=== PATIENT | male | born 1985 | race Hispanic/Latino ===

== ENCOUNTER 2017-11-24 02:47 | Emergency (ER) | payer OTHER ==
[2017-11-24 03:01] VITALS: RESP 18; TEMP 98; O2SAT 98
--- NOTE | 2017-11-24 03:57 | ED PDOC ---
HPI: Head Injury Time Seen by Provider: 11/24/17 02:51 Chief Complaint (Nursing): Alcohol Ingestion Chief Complaint (Provider): Alcohol Ingestion History Per: Patient, EMS History/Exam Limitations: intoxication Injury Occurred (Timing): Just Before Arrival Additional Complaint(s): Patient presents via EMS for evaluation of alcohol intoxication prior to arrival. Patient admits to drinking alcohol tonight and states he was walking home when an ambulance brought him to ED. He states he is unsure why he is here. As per EMS, patient had fallen and hit his head. Patient denies any (-) trauma, (-) injuries, or further medical complaints. Past Medical History Reviewed: Historical Data, Nursing Documentation, Vital Signs Vital Signs: Last Vital Signs Temp 98 F 11/24/17 02:51 Pulse 101 H 11/24/17 02:51 Resp 18 11/24/17 02:51 BP 135/63 11/24/17 02:51 Pulse Ox 98 11/24/17 02:51 - Medical History PMH: No Chronic Diseases - Surgical History Surgical History: No Surg Hx - Family History Family History: States: Unknown Family Hx - Social History Current smoker - smoking cessation education provided: No Alcohol: Social Drugs: Denies - Allergies Allergies/Adverse Reactions: Allergies Allergy/AdvReac Type Severity Reaction Status Date / Time No Known Allergies Allergy Verified 07/27/14 23:33 Review of Systems Review Of Systems: ROS cannot be obtained secondary to pt's inabilty to answer questions. Physical Exam - Reviewed Nursing Documentation Reviewed: Yes Vital Signs Reviewed: Yes - Physical Exam Comments: GENERAL APPEARANCE: Patient is awake, alert, oriented x 3, in no acute distress. (+) AOB. SKIN: Warm, dry; (-) cyanosis HEAD: (-) scalp swelling, (-) scalp tenderness. EYES: (-) conjunctival pallor, (-) scleral icterus, (-) nystagmus. ENMT: Mucous membranes moist. Airway patent: (-) stridor. NECK: (-) tenderness, (-) stiffness, (-) lymphadenopathy. HEART AND CARDIOVASCULAR: (-) irregularity; (-) murmur, (-) gallop. CHEST AND RESPIRATORY: (-) rales, (-) rhonchi, (-) wheezes; breath sounds equal. ABDOMEN: Soft, (-) distention, (-) tenderness, (-) guarding. BACK: (-) tenderness. NEURO AND PSYCH: Mental status as above. Affect: normal. culinary art teacher: Intact. Pupils equal and reactive; EOMI; (-) facial asymmetry; tongue and uvula midline. Strength symmetric. Ambulating with a steady gait. - ECG O2 Sat by Pulse Oximetry: 98 (RA) Pulse Ox Interpretation: Normal Medical Decision Making Medical Decision Making: Initial Impression: Alcohol intoxication; Head injury Initial Plan: * CT head without contrast Time: 456 --CT head FINDINGS: Brain: Unremarkable. Ventricles: Unremarkable. Bones/joints: Unremarkable. No acute fracture. Soft tissues: Unremarkable. Sinuses: Unremarkable as visualized. Mastoid air cells: Unremarkable as visualized. IMPRESSION: No acute intracranial pathology or traumatic injury. 0600 Patient sleeping but arouses easily, speaking with full sentences, no tremors, gait steady. Patient stable for d/c. Patient scheduled an uber for himself. He was escorted by [employer] to his uber ride. Scribe Attestation: Documented by Edith Forrester, acting as a scribe for Jigna Anderson PA-C. Provider Scribe Attestation: All medical record entries made by the Scribe were at my direction and personally dictated by me. I have reviewed the chart and agree that the record accurately reflects my personal performance of the history, physical exam, medical decision making, and the department course for this patient. I have also personally directed, reviewed, and agree with the discharge instructions and disposition. Disposition - Clinical Impression Clinical Impression: Alcohol intoxication, Head injury - Patient ED Disposition Is Patient to be Admitted: No Counseled Patient/Family Regarding: Studies Performed, Diagnosis - Disposition Disposition: Routine/Home Disposition Time: 06:00 Condition: STABLE Instructions: Minor Head Injury, Alcohol Abuse and Alcoholism (DC) Forms: [employer] ([place]), [facility] ED School/Work Excuse - PA / NATIONAL SALES REPRESENTATIVE / Resident Statement MD/DO has reviewed & agrees with the documentation as recorded.
[2017-11-24 05:57] VITALS: BP 122/76; PULSE 90
--- NOTE | 2017-11-24 11:54 | CT ---
Date of service: 11/24/2017 PROCEDURE: CT HEAD WITHOUT CONTRAST. HISTORY: ?fall COMPARISON: None available. TECHNIQUE: Axial computed tomography images were obtained through the head/brain without intravenous contrast. Radiation dose: Total exam DLP = 1003.16 mGy-cm. This CT exam was performed using one or more of the following dose reduction techniques: Automated exposure control, adjustment of the mA and/or kV according to patient size, and/or use of iterative reconstruction technique. FINDINGS: HEMORRHAGE: No intracranial hemorrhage. BRAIN: Normal bernstein-white matter differentiation and density are appreciated throughout the cerebrum and cerebellum with the brainstem appearing unremarkable as well. There is no mass effect. There is no suspicious extra-axial fluid collection and the midline brain anatomy appears diffusely unremarkable. VENTRICLES: Unremarkable. No hydrocephalus. CALVARIUM: No destructive bony lesion or displaced fracture identified including through the skullbase. PARANASAL SINUSES: Limited mucosal inflammatory changes multiple bilateral ethmoid sinuses. MASTOID AIR CELLS: Unremarkable as visualized. No inflammatory changes. OTHER FINDINGS: None. IMPRESSION: Unremarkable noncontrast head CT. Concordant preliminary report from [facility], 11/24/2017.
== END 2017-11-24 06:11 | disposition home or self-care (01) ==
LOC: H.ER 02:47
DX: F10.129 Alcohol abuse with intoxication, unspecified (principal); S09.90XA Unspecified injury of head, initial encounter; W19.XXXA Unspecified fall, initial encounter; Y92.89 Other specified places as the place of occurrence of the external cause